=== PATIENT | male | born 1945 | race Caucasian/White ===

== ENCOUNTER → 2023-06-03 08:11 | Outpatient (REF) | payer MEDICARE, BC, SELFPAY | LOC: RCS 08:11 | PROVIDERS: ATTENDING PHYSICIAN Internal Medicine Cardiovascular Disease; FAMILY PHYSICIAN Family Medicine | DX: R07.89 Other chest pain (principal) | CPT/HCPCS: 93017; 93350 ==

== ENCOUNTER 2023-06-11 14:58 | Emergency (ER) | payer MEDICARE, BC, SELFPAY ==
[2023-06-11 15:00] VITALS: BP 168/94
--- NOTE | 2023-06-11 16:17 | ED.GENMED ---
History of Present Illness
General
Chief Complaint: Fall
Source: patient
Time Seen by Provider: 06/11/23 15:16
Travel History
Have you had any contact with someone who has COVID-19?: No
Do you have any symptoms of coronavirus? Fever > 100 degrees, chills, cough, shortness of breath, sore throat, loss of taste or smell, muscle aches, or headache?: No
History of Present Illness
History of Present Illness:
77-year-old male presents to the emergency room complaining of injuries to his right chest. Patient states he tripped and fell landing on his anterior chest. Had significant pain at the time of the injury but things seem to have settled down.
Currently he has little to no pain. He denies any shortness of breath. He did not strike his head. He does not take any anticoagulants.
Phy Exam
Physical Exam
Physical Exam:
General: Awake, Alert, Oriented X3. No acute distress.
Vitals: unremarkable
Head: Atraumatic
Eyes: Pupils equal, EOMI
Throat: Airway intact, no exudates
Neck: Trachea midline
Chest: No crepitance to palpation, mild tenderness right lateral and anterior chest
Lungs: Clear and equal b/l
Heart: Regular rate, no murmurs
Abd: Soft, Nontender, No pulsatile mass
Neuro: Nonfocal
Skin: Warm, dry, no rash
Extremities: pulses equal b/l, no edema
Course
Orders/Labs/Results
Orders:
Orders
06/11/23 15:03
Ribs, Right 3 View W/PA Chest [CR Ribs-right 3 Vw W/pa Chest*] Urgent
Comment:
Reason For Exam: pain
Vital Signs
Initial and Last Documented VS:
Initial Vital Signs
Temp Pulse Resp BP Pulse Ox
98.4 F 63 18 168/94 97
06/11/23 15:00 06/11/23 15:00 06/11/23 15:00 06/11/23 15:00 06/11/23 15:00
Last Documented Vital Signs
Temp Pulse Resp BP Pulse Ox
98.4 F 63 18 168/94 97
06/11/23 15:00 06/11/23 15:00 06/11/23 15:00 06/11/23 15:00 06/11/23 15:00
MDM/Problems Addressed
Differential Diagnosis Includes:
Chest wall contusion, rib fracture, pneumothorax
MDM/Problems Addressed:
Chest x-ray shows no acute abnormality. Patient stable for discharge home
*Radiology
Radiology exam reviewed: preliminary read by ED provider (I personally viewed the patient's chest x-ray and rib x-rays and see no acute abnormality) and radiology read reviewed
*Pulse Oximetry
Patient hypoxic: no
*Critical Care Note
Total Time (30-74mins, 75-104mins- exclusive of procedures): Not Applicable
Patient Management
Social determinants of health affecting care: Strong social support
ED Attending Note
-
Portions of this chart may have been created with voice recognition software.� Occasional wrong word or��sound alike� substitutions may have occurred due to the inherent limitations of voice recognition software.
Discharge Plan
Departure
Patient Disposition: Home (Routine Discharge)
Date of Disposition: 06/11/23
Time of Disposition: 16:18
Patient with high blood pressure during this ER visit?: Yes
Condition: Good
Discharge Problem:
Chest wall contusion
Instructions: Bruised Rib (DC), BLOOD PRESSURE
Referrals:
Nick Benito MD [Family Provider] -
Interventions
Interventions:
*Risk Screen - Suicide Last Done: 06/11/23 15:00
*General Assessment Last Done: 06/11/23 15:00
*Neglect/Abuse Screening Last Done: 06/11/23 15:00
*ED COVID-19 Vaccine History Last Done: 06/11/23 15:00
== END 2023-06-11 16:45 | disposition home or self-care (01) ==
LOC: EMR 14:58
PROVIDERS: EMERGENCY PHYSICIAN Emergency Medicine; FAMILY PHYSICIAN Family Medicine
DX: S20.219A Contusion of unspecified front wall of thorax, initial encounter (principal); W01.0XXA Fall on same level from slipping, tripping and stumbling without subsequent striking against object, initial encounter; I10 Essential (primary) hypertension
CPT/HCPCS: 99283; 71101

== ENCOUNTER → 2023-06-17 08:18 | Outpatient (REF) | payer MEDICARE, BC, SELFPAY | LOC: DHCBS HW 08:18 | PROVIDERS: ATTENDING PHYSICIAN Internal Medicine Cardiovascular Disease; FAMILY PHYSICIAN Family Medicine | DX: I77.810 Thoracic aortic ectasia (principal) | CPT/HCPCS: 93306 ==

== ENCOUNTER → 2023-10-21 07:25 | Outpatient (REF) | payer MEDICARE, BC, SELFPAY | LOC: HWRAD 07:25 | PROVIDERS: ATTENDING PHYSICIAN Family Medicine | DX: R31.9 Hematuria, unspecified (principal); C61 Malignant neoplasm of prostate | CPT/HCPCS: 74176 ==

== ENCOUNTER → 2024-02-18 10:23 | Outpatient (REF) | payer MEDICARE, BC, SELFPAY | LOC: RAD 10:23 | PROVIDERS: ATTENDING PHYSICIAN Family Medicine | DX: I10 Essential (primary) hypertension (principal); I77.810 Thoracic aortic ectasia; I65.21 Occlusion and stenosis of right carotid artery | CPT/HCPCS: 93880 ==

== ENCOUNTER → 2024-07-12 13:50 | Outpatient (REF) | payer MEDICARE, BC, SELFPAY | LOC: HWRCS 13:50 | PROVIDERS: ATTENDING PHYSICIAN Family Medicine | DX: I77.810 Thoracic aortic ectasia (principal) | CPT/HCPCS: 93306 ==